=== PATIENT | female | born 1965 | race Hispanic/Latino ===

== ENCOUNTER 2018-02-08 12:55 | Inpatient (IN) | payer MEDICARE, MEDICAID ==
[2018-02-08 13:01] VITALS: BMI 43.9
[2018-02-08 15:23] LABS: BASO # 0.1 K/uL (0.0-0.2); BASO % 1.4 % (0.0-2.0); EOS # 0.2 K/uL (0.0-0.7); EOS % 2.6 % (0.0-4.0); HEMOGLOBIN 11.5 g/dL (11.0-16.0); LYMPH # 1.9 K/uL (1.0-4.3); MEAN CELL VOLUME 91.4 fL (81.0-99.0); MEAN CORPUSCULAR HEMOGLOBIN 32.2 pg (27.0-31.0); MEAN CORPUSCULAR HGB CONC 35.2 g/dL (33.0-37.0); MEAN PLATELET VOLUME 8.6 fL (7.2-11.7); MONO # 0.7 K/uL (0.0-0.8); MONO % 10.1 % (0.0-10.0); NEUT # 4.4 K/uL (1.8-7.0); NEUT % 59.9 % (50.0-75.0); NRBC % 0.1 % (0.0-2.0); RBC 3.58 Mil/uL (3.80-5.20); RED CELL DISTRIBUTION WIDTH 14.2 % (11.5-14.5); WHITE BLOOD COUNT 7.3 K/uL (4.8-10.8)
--- NOTE | 2018-02-08 15:38 | CT ---
Date of service: 02/08/2018 PROCEDURE: CT HEAD WITHOUT CONTRAST. HISTORY: altered mental status COMPARISON: None available. TECHNIQUE: Axial computed tomography images were obtained through the head/brain without intravenous contrast. Radiation dose: Total exam DLP = 937 mGy-cm. This CT exam was performed using one or more of the following dose reduction techniques: Automated exposure control, adjustment of the mA and/or kV according to patient size, and/or use of iterative reconstruction technique. FINDINGS: HEMORRHAGE: No intracranial hemorrhage. BRAIN: No mass effect or edema. There is volume loss compatible with mild cerebral atrophy. No significant appearing supratentorial microvascular ischemic changes. There is 7-8 mm hypodensity in the graeme perceived; this can sometimes be artifactual. MR can clarify this area. VENTRICLES: Unremarkable. No hydrocephalus. CALVARIUM: Unremarkable. PARANASAL SINUSES: Unremarkable as visualized. No significant inflammatory changes. MASTOID AIR CELLS: Unremarkable as visualized. No inflammatory changes. OTHER FINDINGS: None. IMPRESSION: No intracranial hemorrhage or mass effect. Mild cerebral atrophy The pontine hypodensity referenced above can sometimes be seen with artifact on CT. MR can clarify this -as needed.
[2018-02-08 15:46] LABS: ALB/GLOB RATIO 0.8 (1.0-2.1); ALBUMIN 3.5 g/dL (3.5-5.0); ALT/SGPT 87 U/L (9-52); AST/SGOT 124 U/L (14-36); BLOOD UREA NITROGEN 40 mg/dL (7-17); CALCIUM 8.8 mg/dl (8.6-10.4); GFR AFRICAN-AMERICAN 22; GFR NON-AFRICAN AMERICAN 18; LIPASE 206 U/L (23-300)
[2018-02-08 15:56] LABS: B-TYPE NATRIURETIC PEPTIDE 553 pg/mL (0-900)
--- NOTE | 2018-02-08 16:18 | RAD ---
Date of service: 02/08/2018 PROCEDURE: CHEST RADIOGRAPH, 1 VIEW HISTORY: Abdominal pain COMPARISON: None available. FINDINGS: LUNGS: The lungs are clear. PLEURA: No pneumothorax or pleural fluid seen. CARDIOVASCULAR: Normal. OSSEOUS STRUCTURES: No significant abnormalities. VISUALIZED UPPER ABDOMEN: Normal. OTHER FINDINGS: There is elevation of the right hemidiaphragm. IMPRESSION: No active pulmonary disease.
[2018-02-08 16:53] LABS: INR 1.3; PROTHROMBIN TIME 13.9 SECONDS (9.7-12.2)
[2018-02-08 17:46] LABS: SQUAMOUS EPITHIAL < 1 /hpf (0-5); URINE AMORPHOUS SEDIMENT RARE /ul (<OCC); URINE BACTERIA RARE (<OCC); URINE BILIRUBIN NEGATIVE (NEGATIVE); URINE BLOOD 1+ (NEGATIVE); URINE CLARITY Clear (Clear); URINE COLOR Yellow (YELLOW); URINE GLUCOSE (UA) NORMAL (Normal); URINE LEUKOCYTE ESTERASE NEG Leu/uL (Negative); URINE PROTEIN 2+ mg/dL (NEGATIVE); URINE UROBILINOGEN NORMAL mg/dL (0.2-1.0)
--- NOTE | 2018-02-08 18:12 | C.PDOC ---
History Of Present Illness 52 year old female, whose PMHx includes HTN, bipolar disorder and schizophrenia , is sent to the ED by snf for evaluation of a period of altered mental status noted today. As per snf, patient appears less responsive and sleepier than usual. Patient then became aggressive and verbally loud with the nurse. Patient has past history of MRSA infection and chronic skin ulcer of the right lower extremity below the knee. Patient had bloodwork done on 01/31 which showed BUN and creatinine of 37/2.6. Patient had unremarkable white count at the time. Time Seen by Provider: 02/08/18 13:11 Chief Complaint (Nursing): Psychiatric Evaluation History Per: Patient, EMS History/Exam Limitations: no limitations Onset/Duration Of Symptoms: Hrs Current Symptoms Are (Timing): Better Suicide/Self Injury Attempted (Context): None Additional History Per: Patient, EMS, Skilled Nursing Past Medical History Reviewed: Historical Data, Nursing Documentation, Vital Signs Vital Signs: Last Vital Signs Temp 99.2 F 02/08/18 15:10 Pulse 74 02/08/18 17:55 Resp 16 02/08/18 17:55 BP 144/68 02/08/18 17:55 Pulse Ox 100 02/08/18 18:25 - Medical History PMH: Anxiety, Bipolar Disorder, Depression, Gastritis, HTN, Post Traumatic Stress Disorder, Rheumatoid Arthritis, Schizophrenia, Seizures - [facility] Procedures CENTRAL VENOUS CATHETER PLACEMENT WITH GUIDANCE (01/18/13) FREE SKIN GRAFT NEC (01/01/14) Family History: States: Unknown Family Hx - Social History Hx Tobacco Use: No Hx Alcohol Use: No Hx Substance Use: No - Immunization History Hx Tetanus Toxoid Vaccination: No Hx Influenza Vaccination: Yes Hx Pneumococcal Vaccination: No Review Of Systems Neurological: Positive for: Altered Mental Status Physical Exam - Physical Exam Appears: In Acute Distress, Other (obese) Skin: Warm, Dry, Other (non-healing, foul-smelling ulcer to right lower extremity ) Head: Atraumatic, Normacephalic Eye(s): bilateral: Normal Inspection Ear(s): Bilateral: Normal Nose: Normal Oral Mucosa: Moist Tongue: Normal Appearing Lips: Normal Appearing Teeth: Other (poor dentition) Throat: Normal Neck: Normal, Supple Chest: Symmetrical, No Deformity, No Tenderness Cardiovascular: Rhythm Regular Respiratory: Normal Breath Sounds Gastrointestinal/Abdominal: Normal Exam, Bowel Sounds, Soft Back: Normal Inspection Extremity: Normal ROM, Capillary Refill (less than 2 seconds ) Extremity: Left: Normal Color And Temperature, Right: Other (chronic non healing ulcer foul smelling ), Bilateral: Atraumatic Pulses: Left Dorsalis Pedis: Normal, Right Dorsalis Pedis: Normal Neurological/Psych: Normal Speech Gait: Steady ED Course And Treatment - Laboratory Results Result Diagrams: 02/08/18 15:16 02/08/18 15:16 ECG: Interpreted By Me, Viewed By Me ECG Rhythm: Sinus Rhythm Interpretation Of ECG: NSR 81bpm. No ischemic changes. WA interval 172ms. QRS duration 88ms. QT/QTc 404/469ms. P-R-T axes 55/18/11. no prior ekg for comparison Rate From EC O2 Sat by Pulse Oximetry: 100 (on RA) Pulse Ox Interpretation: Normal Medical Decision Making Medical Decision Making: Progress: Bloodwork, urinalysis, CT Head, EKG, CXR, and lung VQ scan ordered and reviewed. BUN and creatinine are 40/2.8 troponin negative BNP 553 lipase 206 AST and ALT are slightly elevated. CXR is negative CT head is negative patient will get straight cath. will add cpr and sed rate and cover with ancef for skin aliza for non healing leg ulcer patient has d-dimer of 672. case discussed with Dr. Zendejas, who agrees to admit the patient for acute on chronic kidney failure. awaiting lung VQ scan results. Disposition Counseled Patient/Family Regarding: Diagnosis - Disposition Disposition: HOSPITALIZED Disposition Time: 18:28 Condition: FAIR - Clinical Impression Clinical Impression: Altered mental status, Acute renal failure, Dehydration, Schizophrenia, Wound
[2018-02-08] MEDS ORDERED: ceFAZolin IV 1 gm in Dextrose 1 GM/50 ML BAG IVPB ONE (19:30)
[2018-02-08] MEDS ORDERED: Aluminum Hydroxide/Magnesium Hydroxide Susp (30 mL) PO PRN (21:45)
--- NOTE | 2018-02-08 21:51 | CP.PCM.PCO ---
Physician Communication Note - Physician Communication Note Physician Communication Note: Pt will be seen by CL team tomorrow in AM
[2018-02-08] MEDS ORDERED: oxyCODONE 40 mg ER Tab (oxyCONTIN) PO ONE ×2 (22:32→22:45)
[2018-02-09] MEDS: (Novolog) Insulin Aspart, Recombinant 100 u/ml 10 ml vial SC SCH ×4 (07:07→22:52)
--- NOTE | 2018-02-09 08:41 | NM ---
Date of service: 02/08/2018 COMPARISON: February 08, 2018. TECHNIQUE: 11.0 mCi technetium 99-m Xe-133 Gas. 5.4 mCI technetium 99-m MAA administered intravenously. FINDINGS: VENTILATION COMPONENT: Mild retention of radionuclide on the washout phase is compatible with lower airway disease. PERFUSION COMPONENT: Heterogeneous distribution of radionuclide. No geographic, segmental, lobar abnormalities apparent on the present examination. IMPRESSION: Low probability ventilation perfusion scan for pulmonary embolism. Concordant results (preliminary interpretation) provided by [facility]. Procedure Completed: 20:46 Preliminary ([facility]) Report: Dictated and Authenticated: 21:07. Final Interpretation: 08:39. February 09, 2018.
[2018-02-09 09:55] LABS: EOS # 0.2 K/uL (0.0-0.7); MONO # 0.7 K/uL (0.0-0.8)
[2018-02-09 10:05] LABS: BASO % 0.4 % (0.0-2.0); EOS % 3.2 % (0.0-4.0); HEMOGLOBIN 10.9 g/dL (11.0-16.0); LYMPH # 2.2 K/uL (1.0-4.3); LYMPH % 32.7 % (20.0-40.0); MEAN CORPUSCULAR HEMOGLOBIN 31.4 pg (27.0-31.0); MEAN CORPUSCULAR HGB CONC 34.5 g/dL (33.0-37.0); MONO % 10.2 % (0.0-10.0); NEUT # 3.6 K/uL (1.8-7.0); NEUT % 53.5 % (50.0-75.0); NRBC % 0.9 % (0.0-2.0); RBC 3.47 Mil/uL (3.80-5.20); WHITE BLOOD COUNT 6.7 K/uL (4.8-10.8)
[2018-02-09] MEDS: Multiple Vitamins Tab PO SCH (10:34)
[2018-02-09] MEDS: oxyCODONE 40 mg ER Tab (oxyCONTIN) PO SCH ×2 (10:36→21:52)
[2018-02-09 11:18] LABS: ALB/GLOB RATIO 0.8 (1.0-2.1); ALBUMIN 3.1 g/dL (3.5-5.0); CALCIUM 8.9 mg/dl (8.6-10.4)
--- NOTE | 2018-02-09 11:48 | CARD ---
APPROVED REPORT Date of service: 02/08/2018 EKG Measurement Heart [id number] MD [id number] <Conclusion> Normal sinus rhythm Cannot rule out Anterior infarct, age undetermined Abnormal ECG
--- NOTE | 2018-02-09 11:49 | CP.PCM.PN ---
Subjective - Date & Time of Evaluation Date of Evaluation: 02/09/18 Time of Evaluation: 10:36 - Subjective Subjective: PGY2 Medicine Note for Dr. Zendejas Patient seen and examined this morning at bedside. Patient was admitted overnight for evaluation from retirement. Patient has history of HTN, bipolar disorder and schizophrenia. She was sent from retirement for evaluation of decreased appetite. She ate her entire breakfast this morning. She does not know what happened yesterday but she feels normal today. She has no complaints states she feels well. She wants to stay in the hospital because she does not feel ready to return to the retirement. She has a chronic ulcer on her right foot that she has had for approximately 2 years. Objective - Vital Signs/Intake and Output Vital Signs (last 24 hours): Temp Pulse Resp BP Pulse Ox 97.8 F 85 20 158/82 H 96 02/09/18 07:00 02/09/18 07:00 02/09/18 07:00 02/09/18 10:35 02/09/18 07:00 - Medications Medications: Current Medications Al Hydrox/Mg Hydrox/Simethicone (Maalox 30 Ml) 30 ml PO Q6 PRN PRN Reason: GI distress Amlodipine Besylate (Norvasc) 10 mg PO DAILY [facility] Last Admin: 02/09/18 10:35 Dose: 10 mg Benztropine Mesylate (Cogentin) 0.5 mg PO BID [facility] Last Admin: 02/09/18 10:36 Dose: 0.5 mg Clonazepam (Klonopin) 1 mg PO TID [facility] Last Admin: 02/09/18 10:35 Dose: 1 mg Clonidine HCl (Catapres) 0.2 mg PO BID [facility] Last Admin: 02/09/18 10:36 Dose: 0.2 mg Cyclobenzaprine HCl (Flexeril) 10 mg PO DAILY [facility] Last Admin: 02/09/18 10:36 Dose: 10 mg Famotidine (Pepcid) 20 mg PO DAILY [facility] Furosemide (Lasix) 20 mg PO DAILY [facility] Last Admin: 02/09/18 10:35 Dose: 20 mg Heparin Sodium (Porcine) (Heparin) 5,000 units SC Q8 [facility] Last Admin: 02/09/18 06:21 Dose: 5,000 units Insulin Aspart (Novolog) 1 unit SC ACHS [facility] PRN Reason: Protocol Last Admin: 02/09/18 07:07 Dose: Not Given Metoprolol Tartrate (Lopressor) 50 mg PO DAILY [facility] Last Admin: 02/09/18 10:34 Dose: 50 mg Multivitamins (Hexavitamin) 1 tab PO DAILY [facility] Last Admin: 02/09/18 10:34 Dose: 1 tab Oxycodone HCl (Oxycontin Extended Release Tab) 40 mg PO Q12 [facility] Last Admin: 02/09/18 10:36 Dose: 40 mg Quetiapine Fumarate (Seroquel) 100 mg PO HS [facility] Last Admin: 02/08/18 22:28 Dose: 100 mg Risperidone (Risperdal Tab) 1 mg PO BID [facility] Last Admin: 02/09/18 10:35 Dose: 1 mg Sodium Hypochlorite (Dakins Solution 0.125%) 1 appl TOP QSHIFT [facility] Last Admin: 02/09/18 06:22 Dose: 1 appl - Labs Labs: 02/09/18 09:51 02/09/18 09:51 PT 13.9 SECONDS (9.7-12.2) H 02/08/18 16:31 INR 1.3 02/08/18 16:31 APTT 41 SECONDS (21-34) H 02/08/18 16:31 - Constitutional Appears: No Acute Distress - Head Exam Head Exam: ATRAUMATIC, NORMOCEPHALIC - Eye Exam Eye Exam: Normal appearance - ENT Exam ENT Exam: Mucous Membranes Moist - Respiratory Exam Respiratory Exam: Clear to Ausculation Bilateral, NORMAL BREATHING PATTERN. absent: Accessory Muscle Use, Rales, Rhonchi, Wheezes, Respiratory Distress - Cardiovascular Exam Cardiovascular Exam: REGULAR RHYTHM, +S1, +S2 - GI/Abdominal Exam GI & Abdominal Exam: Soft. absent: Distended, Firm, Guarding, Rigid, Tenderness - Extremities Exam Extremities Exam: Pedal Edema (1+ b/l). absent: Calf Tenderness Additional comments: chronic ulcer located on the plantar aspect of right foot, inferior of 1st and 2nd digit approximately the size of a quarter. No erythema or drainage. - Neurological Exam Neurological Exam: Alert, Awake, CN II-XII Intact, Oriented x3 - Psychiatric Exam Psychiatric exam: Normal Affect, Normal Mood - Skin Skin Exam: Dry, Warm Assessment and Plan - Assessment and Plan (Free Text) Plan: Decreased Appetite (resolved) Patient eat her entire breakfast. States she feels well and does not know what happened yesterday. Hypertension continue to monitor Restart Home Medications * Amlodipine 10mg PO daily * Clonidine 0.2mg PO BID * Lasix 20mg PO daily * Metoprolol Tartrate 50mg PO daily Hx of Bipolar disorder/Schizophrenia Psych consulted, Dr. Tay Restart Home Medications * Benztropine 0.5mg PO BID * Cyclobenzaprine 10mg PO daily * Clonazepam 1mg PO BID * Seroquel 100mg PO HS Hx of CKD Upon admission BUN 40/Cr 2.8 Baseline for patient, per Dr. Zendejas Chronic Pain Restarted home medication * Oxycodone 40mg PO q12h Prophylactic Care Heparin 5,000 units SC q8h Pepcid 20mg PO daily Case discussed and all medical management per Dr. Zendejas
--- NOTE | 2018-02-09 12:42 | PCM.PSYCH ---
Initial Psychiatric Evaluation - Initial Psychiatric Evaluation Type of Admission: Voluntary Legal Status: Capacity Chief Complaint (in patient's own words): "I need valium" History of Present Illness and Precipitating Events: Ms. Jasmine is a 52-year-old female living in a skilled nursing and she has 1 child (19). Consult was requested for her psych hx She said that she was sent here because one of her skilled nursing nurses said the pt "wasn't right" because pt would fall asleep in chair in front of tv. Pt says she is in a good mood now. She had been taking valium given to her from a friend at the skilled nursing on top of her regular medication (seroquel, oxycontin , and high dose klonpin: 3 mg/d). She asked for more valium. Pt said she had high energy as a child and she had to watch herself to not get out of hand. Pt admits to seizures, depression. Pt denies suicidal ideation, AVH, delusions. She is future oriented She has a vague hx of bipolar dx, mostly depression. Denies drug or alcohol abuse but she is asking for more benzos. Psych hx: denies psych hospitalization. No nicol attempts Family Hx: unknown Past Med Hx: epilepsy, arteriosclerosis, cellulitis Current Medications: Active Medications Generic Name Dose Route Start Last Admin Trade Name Freq PRN Reason Stop Dose Admin Al Hydrox/Mg Hydrox/Simethicone 30 ml 02/08/18 21:45 Maalox 30 Ml PO Q6 PRN GI distress Amlodipine Besylate 10 mg 02/09/18 10:00 02/09/18 10:35 Norvasc PO 10 mg DAILY [facility] Administration Benztropine Mesylate 0.5 mg 02/09/18 10:00 02/09/18 10:36 Cogentin PO 0.5 mg BID [facility] Administration Clonazepam 1 mg 02/09/18 10:00 02/09/18 10:35 Klonopin PO 1 mg TID [facility] Administration Clonidine HCl 0.2 mg 02/09/18 10:00 02/09/18 10:36 Catapres PO 0.2 mg BID [facility] Administration Cyclobenzaprine HCl 10 mg 02/09/18 10:00 02/09/18 10:36 Flexeril PO 10 mg DAILY [facility] Administration Famotidine 20 mg 02/09/18 10:52 Pepcid PO DAILY [facility] Furosemide 20 mg 02/09/18 10:00 02/09/18 10:35 Lasix PO 20 mg DAILY [facility] Administration Heparin Sodium (Porcine) 5,000 units 02/08/18 22:00 02/09/18 06:21 Heparin SC 5,000 units Q8 [facility] Administration Insulin Aspart 1 unit 02/09/18 07:30 02/09/18 12:20 Novolog SC 1 unit ACHS [facility] Administration Protocol Metoprolol Tartrate 50 mg 02/09/18 10:00 02/09/18 10:34 Lopressor PO 50 mg DAILY [facility] Administration Multivitamins 1 tab 02/09/18 10:00 02/09/18 10:34 Hexavitamin PO 1 tab DAILY [facility] Administration Oxycodone HCl 40 mg 02/09/18 10:00 02/09/18 10:36 Oxycontin Extended Release Tab PO 40 mg Q12 [facility] Administration Quetiapine Fumarate 100 mg 02/08/18 22:15 02/08/18 22:28 Seroquel PO 100 mg HS [facility] Administration Risperidone 1 mg 02/09/18 10:00 02/09/18 10:35 Risperdal Tab PO 1 mg BID [facility] Administration Sodium Hypochlorite 1 appl 02/08/18 22:00 02/09/18 06:22 Dakins Solution 0.125% TOP 1 appl QSHIFT [facility] Administration Past Psychiatric History - Past Psychiatric History Previous Treatment History: Intensive Outpatient Pertinent Medical Hx (Current Medical&Sleep Prob, Allergies): Allergies Allergy/AdvReac Type Severity Reaction Status Date / Time No Known Allergies Allergy Verified 02/08/18 13:01 Clonazepam [Klonopin] 2 mg PO TID 05/03/13 Cyclobenzaprine HCl [Flexeril] 10 mg PO DAILY 05/03/13 Maalox 30 ml PO Q6 PRN 06/04/13 Multivitamin 1 tab PO DAILY 06/04/13 oxyCONTIN 40 mg PO BID 06/04/13 Famotidine [Pepcid AC] 20 mg PO DAILY 12/26/13 Aluminum Hydroxide/Magnesium H [Maalox 30 ml] 30 ml PO Q6 PRN 02/08/18 Benztropine [Cogentin] 1 tab PO BID 02/08/18 Cyclobenzaprine [Flexeril] 1 tab PO DAILY 02/08/18 Famotidine [Pepcid] 1 tab PO DAILY 02/08/18 Lasix 20 mg PO DAILY 02/08/18 Metoprolol Tartrate [Lopressor] 1 tab PO DAILY 02/08/18 Norvasc 10 mg PO DAILY 02/08/18 QUEtiapine [Seroquel] 1 tab PO HS 02/08/18 Risperidone [Risperdal] 1 tab PO BID 02/08/18 Sodium Hypochlorite [H-Chlor 12] 02/08/18 cloNIDine [Catapres] 1 tab PO BID 02/08/18 clonazePAM [Klonopin] 1 tab PO TID 02/08/18 Review of Systems - Constitutional Constitutional: Malaise - Psychiatric Psychiatric: Abnormal Sleep Pattern, Anxiety, Difficulty Concentrating. absent : Auditory Hallucinations, Hallucinations, Homicidal Ideation, Irritability, Panic Attacks, Paranoia, Suicidal Ideation Mental Status Examination - Personal Presentation Personal Presentation: Looks older than stated age - Affect Affect: Constricted - Motor Activity Motor Activity: Psychomotor Retardation - Reliability in Providing Information Reliability in Providing Information: Fair - Speech Speech: Organized - Mood Mood: Depressed, Anxious - Formal Thought Process Formal Thought Process: No Impairment - Obsessions/Compulsions Obsessions: No Compulsions: No - Cognitive Functions Orientation: Person, Place, Situation, Time Sensorium: Drowsy Attention/Concentration: Attentive Abstract Thinking: Amity Judgement: Imparied, as evidence by: Poor judgement (Took contraband valium at Jail), Intact, as evidence by: Insight regarding need for hospitalization Memory: Recent intact, as evidence by: Ability to recall events of the day, Remote impaired as evidenced by: Inability to recall sig life events - Risk Risk: Diminished functioning - Strength & Assets Inventory Strength & Assets Inventory: Cooperative - Limitations Limitations: Living alone DSM 5 DX - DSM 5 DSM 5 Diagnosis: Bipolar disorder, last episode depressed r/o Bipolar II KEISHA r/o sedative, hypnotic or anxiolytic use d/o - Recommended/Plan of Treatment Treatment Recommendations and Plan of Treatment: Klonopin lowered a little DC risperdal, she is overweight and sedated Will increase seroquel slowly Lexapro for KEISHA, low dose for now Support and psychoed on risks of meds Relaxation traning Refer to an outpt psychiatrist 33 min
--- NOTE | 2018-02-10 06:47 | CP.PCM.PN ---
Subjective - Date & Time of Evaluation Date of Evaluation: 02/10/18 Time of Evaluation: 06:46 - Subjective Subjective: PGY2 Medicine Note for Dr. Zendejas Patient seen and examined this morning at bedside. No acute events overnight. Patient is resting in bed requesting her pain medication early. She was questioned this morning about taking additional medications, in particular Valium, from her friends in the [facility] as this was stated in the psych note from yesterday. Patient admits that she was taking her friend's medication , Valium. She feels like her energy level is back to normal. She has a mild headache this morning but otherwise has no complaints other than her chronic back pain. Denies fevers, chills, nausea, vomiting, diarrhea, constipation, chest pain, shortness of breath, abdominal pain, urinary complaints, vision changes, numbness or tingling. Objective - Vital Signs/Intake and Output Vital Signs (last 24 hours): Temp Pulse Resp BP Pulse Ox 98 F 72 20 135/78 98 02/09/18 23:35 02/09/18 23:35 02/09/18 23:35 02/09/18 23:35 02/09/18 23:35 Intake and Output: 02/09/18 02/10/18 18:59 06:59 Output Total 550 Balance -550 - Medications Medications: Current Medications Al Hydrox/Mg Hydrox/Simethicone (Maalox 30 Ml) 30 ml PO Q6 PRN PRN Reason: GI distress Amlodipine Besylate (Norvasc) 10 mg PO DAILY [facility] Last Admin: 02/09/18 10:35 Dose: 10 mg Benztropine Mesylate (Cogentin) 0.5 mg PO BID [facility] Last Admin: 02/09/18 18:05 Dose: 0.5 mg Clonazepam (Klonopin) 1 mg PO BID [facility] Last Admin: 02/09/18 18:05 Dose: 1 mg Clonidine HCl (Catapres) 0.2 mg PO BID [facility] Last Admin: 02/09/18 18:05 Dose: 0.2 mg Cyclobenzaprine HCl (Flexeril) 10 mg PO DAILY [facility] Last Admin: 02/09/18 10:36 Dose: 10 mg Famotidine (Pepcid) 20 mg PO DAILY [facility] Furosemide (Lasix) 20 mg PO DAILY [facility] Last Admin: 07/25/18 10:35 Dose: 20 mg Heparin Sodium (Porcine) (Heparin) 5,000 units SC Q8 [facility] Last Admin: 02/10/18 06:01 Dose: 5,000 units Insulin Aspart (Novolog) 0 unit SC ACHS [facility] PRN Reason: Protocol Last Admin: 02/09/18 22:52 Dose: Not Given Metoprolol Tartrate (Lopressor) 50 mg PO DAILY [facility] Last Admin: 02/09/18 10:34 Dose: 50 mg Multivitamins (Hexavitamin) 1 tab PO DAILY [facility] Last Admin: 02/09/18 10:34 Dose: 1 tab Oxycodone HCl (Oxycontin Extended Release Tab) 40 mg PO Q12 [facility] Last Admin: 02/09/18 21:52 Dose: 40 mg Quetiapine Fumarate (Seroquel) 100 mg PO HS [facility] Last Admin: 02/09/18 21:52 Dose: 100 mg Sodium Hypochlorite (Dakins Solution 0.125%) 1 appl TOP QSHIFT [facility] Last Admin: 02/10/18 06:05 Dose: 1 appl - Labs Labs: 02/09/18 09:51 02/09/18 09:51 PT 13.9 SECONDS (9.7-12.2) H 02/08/18 16:31 INR 1.3 02/08/18 16:31 APTT 41 SECONDS (21-34) H 02/08/18 16:31 - Additional Findings Additional findings: - Constitutional Appears: No Acute Distress - Head Exam Head Exam: ATRAUMATIC, NORMOCEPHALIC - Eye Exam Eye Exam: Normal appearance - ENT Exam ENT Exam: Mucous Membranes Moist - Respiratory Exam Respiratory Exam: Clear to Ausculation Bilateral, NORMAL BREATHING PATTERN. absent: Accessory Muscle Use, Rales, Rhonchi, Wheezes, Respiratory Distress - Cardiovascular Exam Cardiovascular Exam: REGULAR RHYTHM, +S1, +S2 - GI/Abdominal Exam GI & Abdominal Exam: Soft. absent: Distended, Firm, Guarding, Rigid, Tenderness - Extremities Exam Extremities Exam: Pedal Edema (1+ b/l). absent: Calf Tenderness Additional comments: chronic ulcer located on the plantar aspect of right foot, inferior of 1st and 2nd digit approximately the size of a quarter. No erythema or drainage. - Neurological Exam Neurological Exam: Alert, Awake, CN II-XII Intact, Oriented x3 - Psychiatric Exam Psychiatric exam: Normal Affect, Normal Mood - Skin Skin Exam: Dry, Warm Assessment and Plan - Assessment and Plan (Free Text) Plan: Lethargy/Decreased Appetite(resolved) Patient is tolerating her diet and eating well It was discovered by Psych that patient has been taking her friend's Valium on top of her other psych medications. This is most likely the reason for the patient's increased lethargy. Patient was counseled on not taking any additional medications from any of her friends. She states she understands and agrees. Patient's lethargy has resolved and her energy level is back to her baseline. Hypertension continue to monitor Restart Home Medications * Amlodipine 10mg PO daily * Clonidine 0.2mg PO BID * Lasix 20mg PO daily * Metoprolol Tartrate 50mg PO daily Hx of Bipolar disorder/Schizophrenia Psych consulted, Dr. Tay Restart Home Medications * Benztropine 0.5mg PO BID * Cyclobenzaprine 10mg PO daily * Clonazepam 1mg PO BID * Seroquel 100mg PO HS Hx of CKD stage 4 Upon admission BUN 40/Cr 2.8 * Today BUN 35/Cr 2.3 Baseline for patient, per Dr. Zendejas Chronic Pain Restarted home medication * Oxycodone 40mg PO q12h Prophylactic Care Heparin 5,000 units SC q8h Pepcid 20mg PO daily DISPO: Patient is to be discharged back to [facility]. Zendejas on Patient is to be discharged back to her [facility] per Dr. Zendejas. Patient is to continue her medications as directed - Patient instructed to stop taking addition medications from her friends at the penitentiary, especially the Valium she was taking from her friend. If patient experiences any new or worsening symptoms, please go directly to the nearest emergency department. Case discussed and all medical management per Dr. Zendejas
[2018-02-10] MEDS: (Novolog) Insulin Aspart, Recombinant 100 u/ml 10 ml vial SC SCH ×2 (07:02→12:33)
[2018-02-10 08:46] LABS: ALB/GLOB RATIO 0.9 (1.0-2.1); ALBUMIN 3.8 g/dL (3.5-5.0); CALCIUM 9.2 mg/dl (8.6-10.4)
[2018-02-10 08:47] LABS: BASO # 0.1 K/uL (0.0-0.2); BASO % 1.1 % (0.0-2.0); EOS # 0.2 K/uL (0.0-0.7); EOS % 3.3 % (0.0-4.0); HEMOGLOBIN 12.1 g/dL (11.0-16.0); LYMPH # 2.3 K/uL (1.0-4.3); LYMPH % 38.4 % (20.0-40.0); MEAN CELL VOLUME 91.3 fL (81.0-99.0); MEAN CORPUSCULAR HEMOGLOBIN 31.5 pg (27.0-31.0); MEAN CORPUSCULAR HGB CONC 34.5 g/dL (33.0-37.0); MEAN PLATELET VOLUME 8.9 fL (7.2-11.7); MONO # 0.5 K/uL (0.0-0.8); MONO % 8.6 % (0.0-10.0); NEUT # 2.9 K/uL (1.8-7.0); NEUT % 48.6 % (50.0-75.0); NRBC % 0.4 % (0.0-2.0); RBC 3.85 Mil/uL (3.80-5.20); WHITE BLOOD COUNT 5.9 K/uL (4.8-10.8)
[2018-02-10] MEDS: Multiple Vitamins Tab PO SCH (09:09)
--- NOTE | 2018-02-10 09:49 | HP ---
HISTORY OF PRESENT ILLNESS: A 52-year-old female admitted to the hospital with chief complaint of confusion. The patient has history of bipolar disorder,diabetes, renal insufficiency. PHYSICAL EXAMINATION: GENERAL: The patient is awake, alert, oriented to time and place. VITAL SIGNS: Temperature 98, pulse 90, blood pressure 110/85. HEENT: Within normal limits. NECK: Supple. CHEST: Symmetrical. HEART: Regular. ABDOMEN: Soft. EXTREMITIES: No edema. The patient's suffers from mental confusion, altered mental status sydrome without psychiatric , psychosis. At this point, renal check and psych consult. Ophelia Zendejas MD
[2018-02-10] MEDS: oxyCODONE 40 mg ER Tab (oxyCONTIN) PO SCH (10:30)
--- NOTE | 2018-02-10 14:23 | PCM.PYCHPN ---
Psychiatric Progress Note - Psychiatric Progress Note Patient Chief Complaint: "I need valium" Medication Change: Yes (increase seroquel) Medical Record Reviewed: Yes Mental Status Examination - Cognitive Function Orientation: Person, Place, Situation, Time - Mood Mood: Depressed, Anxious - Affect Affect: Constricted - Formal Thought Process Formal Thought Process: No Impairment Goal/Treatment Plan - Goal/Treatment Plan Progress Toward Problem(s) and Goals/Treatment Plan: Klonopin lowered a little DC risperdal, she is overweight and sedated Will increase seroquel slowly Lexapro for KEISHA, low dose for now Support and psychoed on risks of meds Relaxation traning Refer to an outpt psychiatrist 33 min
[2018-02-10 15:52] VITALS: BP 135/78; PULSE 74; RESP 20; TEMP 98.7; O2SAT 96
[2018-02-11] MEDS ORDERED: Pneumococcal 23-Valent Vaccine IM ONE (10:00)
== END 2018-02-10 16:15 | disposition designated cancer center or children's hospital (05) | DRG 683 ==
LOC: C.ER 12:55 → C.9E 17:45 → C.3T 23:21 → C.5S 02-09 03:46
PROVIDERS: ADMIT Internal Medicine Pulmonary Disease; ATTEND Internal Medicine Pulmonary Disease
DX: N17.9 Acute kidney failure, unspecified (principal); Z68.41 Body mass index [BMI] 40.0-44.9, adult; E86.0 Dehydration; E11.22 Type 2 diabetes mellitus with diabetic chronic kidney disease; F31.9 Bipolar disorder, unspecified; F43.10 Post-traumatic stress disorder, unspecified; G40.909 Epilepsy, unspecified, not intractable, without status epilepticus; G89.29 Other chronic pain; I12.9 Hypertensive chronic kidney disease with stage 1 through stage 4 chronic kidney disease, or unspecified chronic kidney disease; M06.9 Rheumatoid arthritis, unspecified; N18.9 Chronic kidney disease, unspecified; L97.519 Non-pressure chronic ulcer of other part of right foot with unspecified severity; F20.9 Schizophrenia, unspecified; E11.621 Type 2 diabetes mellitus with foot ulcer; E66.3 Overweight